=== PATIENT | female | born 2005 | race Caucasian/White ===

== ENCOUNTER 2025-04-12 15:37 | Outpatient (CLI) | payer OTHER, SELFPAY ==
[2025-04-12 21:34] LABS: Chlamydia DNA Amplified* NOT DETECTED (No Detected); GC DNA Amplified* NOT DETECTED (No Detected)
[2025-04-20 17:26] LABS: Pap Test Digital Imaging Done; Pap Test Reviewed by Pathologi Done
== END 2025-04-12 15:38 | disposition home or self-care (01) ==
PROVIDERS: Visit Provider Family Medicine
DX: R87.619 Unspecified abnormal cytological findings in specimens from cervix uteri (principal); Z12.4 Encounter for screening for malignant neoplasm of cervix; N92.6 Irregular menstruation, unspecified; R10.20 Pelvic and perineal pain unspecified side; B00.9 Herpesviral infection, unspecified
CPT/HCPCS: 84443; 86480; 86592; 86703; 87340; 87491; 87591; 88141; 88142; 88175